=== PATIENT | male | born 1990 | race Caucasian/White ===

== ENCOUNTER 2024-09-18 14:18 | Outpatient (CLI) | payer BC, SELFPAY ==
[2024-09-18 14:36] VITALS: BP 133/70; PULSE 56; RESP 18; TEMP 36.5; O2SAT 96; BMI 27.0
[2024-09-18 14:55] VITALS: BP 107/65; PULSE 60; RESP 18; O2SAT 98
--- NOTE | 2024-09-18 15:00 | P.ANESASSM_ITS ---
Pre-Anesthetic Assessment Height/Weight: Height 1.85 m Weight 92.986 kg Temp Pulse Resp BP Pulse Ox O2 Del Method 97.7 F 56 L 18 133/70 96 Room Air 09/18/24 14:36 09/18/24 14:36 09/18/24 14:36 09/18/24 14:36 09/18/24 14:36 09/18/24 14:36 Epidural Blood Patch Exam alert, oriented x 3, clear to auscultation bilaterally and regular rate & rhythm Neuropsych Reviewed office note from Dr. Arthur, no signs of ICP on MRI Anesthetic Plan ASA status: 2 Other: Patient presents to OPS for PDPH at request and order of Dr. Nielsen from [facility]. Patient received LP several days ago and now has classical positional headache. States he's already tried fluids, rest, and OTCs with minimal effect. Would like to proceed with blood patch. Informed consent obtained Medications/Allergies Home Medications Medication Instructions Recorded Confirmed Last Taken Type acetaminophen 325 mg tablet 325 mg PO QID PRN Pain 09/18/24 09/18/24 09/18/24 History ibuprofen 200 mg tablet 200 mg PO Q6H PRN Pain 09/18/24 09/18/24 09/18/24 History Allergies Allergy/AdvReac Type Severity Reaction Status Date / Time acetazolamide Allergy Unknown Verified 09/18/24 14:34 [From [employer]] Data Anesthesia Cardiac Studies: 2 No Data to Display
--- NOTE | 2024-09-18 15:04 | P.ANES_ITS ---
Anesthesia Procedures Procedure/Date: 09/18/24 Epidural: Time Out Performed: Yes Consents Signed: Procedure Consent Consent: requested by attending/covering physician, from patient, from other, risks and benefits reviewed and patient agrees to proceed Lumbar Level: L3-L4 Epidural position: sitting Epidural procedure: sterile prep of area (st erile prep and drape), 1% lidocaine to numb the area and 18 g needle Additional Comments: MUNIRA of resistance to saline obtained, Micah Burkett CRNA as assist performed sterile draw of blood (20 ml) from patient's R AC. Patient then instructed to lay flat for 1 hr
[2024-09-18 15:08] VITALS: BP 108/65; PULSE 63; RESP 18; O2SAT 98
--- NOTE | 2024-09-18 15:11 | SUR.PREOP ---
Patient here for epidural blood patch with anesthesia. Patient came in ambulatory A&Ox4 with . Patient stated headache pain at 9/10 before procedure. Patient prepped for procedure, vitals charted. Patient tolerated procedure well. Blood drawn by KIMBERLY Obrien. After procedure patient instructed to lay flat on back for 1 hour starting at 1455. Patient rates pain at 0/10 lying down after procedure. Patient's back in room with patient. He is still alert and oriented, drinking water.
[2024-09-18 15:30] VITALS: BP 120/65; PULSE 52; RESP 18; O2SAT 96
[2024-09-18 15:45] VITALS: BP 112/67; PULSE 52; RESP 18; O2SAT 96
--- NOTE | 2024-09-18 17:23 | SUR.PREOP ---
Patient left ambulatory with . Patient stated his pain in headache was gone and he felt much better. Patient was alert and oriented. Instructions given on what to look for and when to return for further care. PAtient and stated understanding. Procedure site was observed, no bleeding or redness or bruising or swelling noted.
== END 2024-09-18 16:04 | disposition home or self-care (01) ==
PROVIDERS: Visit Provider Psychiatry & Neurology Neurology
DX: R51.0 Headache with orthostatic component, not elsewhere classified (principal)
CPT/HCPCS: 36415; 62273